=== PATIENT | female | born 1995 | race Caucasian/White ===

== ENCOUNTER 2023-06-03 08:06 | Emergency (ER) | payer OTHER ==
[~2023-06-03] VITALS: Ht 172.7 cm; Wt 127.0 kg
[2023-06-03 08:13] VITALS: BP 124/84; TEMP 98.3; O2SAT 97
[2023-06-03] MEDS ORDERED: FAMOTIDINE 20MG/2ML VIAL IV ONE (08:30)
[2023-06-03] MEDS ORDERED: SODIUM CHLORIDE 0.9% 1,000 ML IV ONE (08:30)
[2023-06-03] MEDS ORDERED: DICYCLOMINE HCL 10MG/ML 2ML VIAL IM ONE (08:30)
[2023-06-03] MEDS ORDERED: ONDANSETRON HCL 4MG/2ML INJ IV ONE (08:30)
[2023-06-03 08:47] LABS: BASOPHILS % 0.2 % (0.0-2.0); EOSINOPHILS % 0.1 % (0.0-5.0); HEMATOCRIT. 45.8 % (36.0-48.0); HEMOGLOBIN. 15.7 g/dL (12.0-16.0); LYMPHOCYTES % 11.3 % (20.0-50.0); MEAN CORPUSCULAR HEMOGLOBIN 30.9 pg (28.0-32.0); MEAN CORPUSCULAR VOLUME 90.3 fL (81.0-99.0); MEAN PLATELET VOLUME 9.3 fl (7.4-10.4); NEUTROPHILS % 82.4 % (40.0-76.0); PLATELET 302 x1000/uL (130-400); RED BLOOD CELL COUNT 5.07 mill/uL (4.2-5.4)
[2023-06-03 09:04] LABS: CHLORIDE 101 mEq/L (98-107)
[2023-06-03 09:17] LABS: HCG SCREEN NEGATIVE
[2023-06-03] MEDS ORDERED: KETOROLAC 30MG/ML VIAL IV ONE (10:00)
[2023-06-03 11:31] VITALS: PULSE 91
[2023-06-03 11:57] VITALS: RESP 16
== END 2023-06-03 12:15 | disposition home or self-care (01) ==
LOC: ER 08:06
DX: R11.2 Nausea with vomiting, unspecified (principal); K21.9 Gastro-esophageal reflux disease without esophagitis; Z98.890 Other specified postprocedural states
CPT/HCPCS: 80053; 84703; 83690; 85025; 36415; 93005; 96372; 96374; 96375; 99285; J0500; J3490; J1885; J2405; J7030; Z7610 ×2; C1893